=== PATIENT | male | born 1945 | race Caucasian/White ===

== ENCOUNTER 2016-09-11 11:10 | Inpatient (IN) | payer MEDICARE ==
--- NOTE | 2016-09-11 11:20 | HP ---
HISTORY OF PRESENT ILLNESS: This 71 year-old white male is admitted to the hospital from Dr. Laughlin' office as a direct admission. He was seen in the clinic and was found to have fairly significant abdominal pain worsening for the last 6 days. Pain is primarily localized into the left lower quadrant. Appetite has been fairly good. He has had some similar pains like this many years before with diverticulitis. He has been coughing with some greenish sputum. He admits to having shortness of breath for the last 20 years and stopped smoking about 30 years after an approximate 50 to 60 pack year history of smoking up to 3 or 4 packs per day. The abdominal pain is a prominent part of his current admission symptoms and he is admitted to the hospital for further evaluation, supportive care as well as gastrointestinal rest and specific followup. PAST SURGICAL HISTORY: 1. Hernia repair by Dr. Chase in 2002. 2. Coronary stents in 2 vessels in 2006. CURRENT MEDICATIONS: Please refer to nurses' notes for a list of verified medications taken by the patient at home. ALLERGIES: NONE. FAMILY HISTORY: Positive for coronary artery disease, cancer and diabetes. SOCIAL HISTORY: He has worked in [employer] and [employer]. He stopped smoking 30 years ago but has had increasing shortness of breath for the last 20 years. Before that, he had a 50 to 60 pack year history of smoking up to 3 or 4 packs per day until when he stopped. REVIEW OF SYSTEMS: Weight is fairly stable. No fever or chills. HEENT: Uses hearing aids occasionally. NECK: Supple. LUNGS: Occasional coughing with some greenish sputum even with some hemoptysis noted earlier today. Shortness of breath upon exertion. CARDIOVASCULAR: No significant chest pains and no significant rhythm changes evident. ABDOMEN: No nausea or vomiting, but he does have significant abdominal discomfort, especially in the left lower quadrant. No diarrhea or emesis. GENITOURINARY: No dysuria. EXTREMITIES: No significant edema. NEUROLOGIC: No focal weakness. No headaches. PHYSICAL EXAMINATION: VITAL SIGNS: Temperature 98.6, blood pressure 116/84, pulse 94, respirations 18 , pulse oximetry 95% on room air. Weight 90.9 kilos. GENERAL: The patient is awake, alert and oriented. The is also present and assists with the history. The patient is able to communicate quite nicely, is moving all extremities but complaining of abdominal pain. HEENT: Unremarkable. NECK: Supple. No carotid bruits. CHEST: Have some slight rhonchi, especially in the left lower lung. No significant rales present. CARDIOVASCULAR: Heart tones regular without any significant murmurs. ABDOMEN: Quite tender especially in the left lower quadrant. There is an element of rebound tenderness when palpating and releasing rapidly on the right side with referral of the pain towards the left lower quadrant. No organomegaly or masses otherwise noted. EXTREMITIES: Fairly well formed. Fairly good muscle tone. NEUROLOGIC: No focal neurological weaknesses noted. The patient is awake, alert and oriented, and communicative. LABORATORY: White count initially 14,700 with 11,100 in the hospital after admission. Hemoglobin 15.3. Chemistries reveal potassium 4, BUN 10, creatinine 0.94, glucose 126, calcium 8.8. Liver enzymes normal. Albumin 3.4. Urine pending. Blood cultures also pending. X-rays pending. ASSESSMENT: 1. Acute abdominal pain especially in the left lower quadrant with the patient having a diagnosis of diverticulosis noted on endoscopy years before with current symptoms showing evidence of possible mild peritonitis and inflammation with slight rebound tenderness noted. 2. Chronic obstructive pulmonary disease in a former smoker with apparent history of restrictive lung disease noted. 3. Presumptive evidence of a left lower lobe infiltrate noted on x-ray by Dr. Laughlin in the clinic earlier today. 4. Mild dehydration with IV supplementation initiated. 5. History of gastroesophageal reflux disease. 6. History of diverticulosis with possible underlying diverticulitis contributing to the patient's symptoms. PLAN: Continue with some gastrointestinal rest and IV hydration, analgesics as needed. Will continue with Flagyl and Levaquin, and await CT scan of the abdomen and pelvis with contrast after normal kidney function noted. Please refer to laboratory studies. #[id number] [facility]
[2016-09-11] MEDS ORDERED: HYDROcodone 5MG/APAP 325MG 1 EA TAB PO PRN (13:01)
[2016-09-11] MEDS ORDERED: ACETAMINOPHEN 500 MG TAB PO PRN (13:01)
[2016-09-11] MEDS ORDERED: ALUM & MAG HYDROX-SIMETHICONE 30 ML UD PO PRN (13:01)
[2016-09-11] MEDS ORDERED: MAGNESIUM HYDROXIDE 30 ML UD PO PRN (13:01)
[2016-09-11] MEDS ORDERED: LEVALBUTEROL NEBS 1.25 MG/3 ML VIAL INH PRN (13:01)
[2016-09-11] MEDS ORDERED: BISACODYL SUPPOSITORY 10 MG PR PRN (13:09)
[2016-09-11] MEDS ORDERED: metroNIDAZOLE IV PREMIX 500MG 500 MG in PREMIX BAG 1 BAG IVPB SCH (13:30)
[2016-09-11] MEDS: ALBUTEROL SULFATE 2.5 MG/3 ML VIAL NEB SCH ×3 (13:40→20:55)
[2016-09-11] MEDS ORDERED: ONDANSETRON INJ 4 MG/2 ML VIAL IV PRN (14:02)
[2016-09-11] MEDS ORDERED: PANTOPRAZOLE SODIUM IV 40 MG VIAL IV SCH (14:30)
[2016-09-11] MEDS ORDERED: levoFLOXacin 500MG IV 500 MG in PREMIX BAG 1 BAG IVPB SCH (14:30)
--- NOTE | 2016-09-11 15:12 | CT ---
EXAM DESCRIPTION: Abdomen/Pelvis w/Contrast CLINICAL HISTORY: abd pain, hx of divertics COMPARISON: March 30, 2011 TECHNIQUE: CT of the abdomen and Pelvis was performed with IV contrast. FINDINGS: There is colonic diverticulosis with wall thickening, inflammation and a tiny amount of fluid adjacent to a short segment of sigmoid colon consistent with diverticulitis. No abscess or pneumoperitoneum. The appendix is normal. No dilated small bowel loops. There is a 3.1 cm fusiform infrarenal abdominal aortic aneurysm, new from March,. There is a small hiatal hernia. No calcified gallstone. Emphysema and fibrosis are noted in the lung bases. There is degenerative disc disease at L5-S1. IMPRESSION: Sigmoid diverticulitis without abscess, perforation or other acute complication. 3.1 cm fusiform infrarenal abdominal aortic aneurysm, new from March,. AAA Size: Follow-up Recommendation : 2.6-2.9 cm Every 5 years 3.0-3.4 cm Every 3 years 3.5-3.9 cm Every 1 year 4.0-4.4 cm Every 1 year, vascular consultation recommended 4.5-5.4 cm Every 6 months, vascular consultation recommended >5.5 cm Vascular surgery consultation recommended 1. J Vasc Surg. 2009 Oct;50(4 Suppl):S2-49 2. For aortas with maximum diameter of 2.6-2.9 cm meeting the criteria for AAA (>50% of proximal normal segment) Emphysema and fibrosis. Electronically signed by: Sammy Jones MD 09/11/2016 3:11 PM PET CAREGIVER
[2016-09-11] MEDS: IV SET AND CAP CHANGE INJ INJ SCH (15:35)
[2016-09-11] MEDS ORDERED: metroNIDAZOLE IV PREMIX 500MG 100 ML IVPB ONE ×2 (15:37→23:42)
[2016-09-11] MEDS: metroNIDAZOLE IV PREMIX 500MG 500 MG in PREMIX BAG 1 BAG IVPB SCH ×2 (15:42→23:49)
[2016-09-11] MEDS ORDERED: levoFLOXacin 500MG IV 100 ML IVPB ONE (16:18)
[2016-09-11] MEDS: SODIUM CHLORIDE 0.9% 1000ML 1,000 ML IVS PRN (17:12)
[2016-09-11] MEDS: MORPHINE SULFATE INJ 10 MG/ML VIAL IV PRN ×2 (17:48→18:28)
[2016-09-11] MEDS: SODIUM CHLORIDE 0.9% 10 ML VIAL IV PRN (17:49)
[2016-09-11] MEDS: levoFLOXacin 500MG IV 500 MG in PREMIX BAG 1 BAG IVPB SCH (17:54)
[2016-09-11] MEDS ORDERED: ACETAMINOPHEN 325 MG TAB PO PRN (20:09)
[2016-09-11] MEDS ORDERED: HYDROmorphone HCL INJ 2 MG/ML VIAL IV PRN (20:10)
[2016-09-11] MEDS ORDERED: HYDROmorphone HCL INJ 2 MG/ML VIAL IV ONE (20:11)
[2016-09-12] MEDS: SODIUM CHLORIDE 0.9% 1000ML 1,000 ML IVS PRN (06:01)
[2016-09-12] MEDS: PANTOPRAZOLE SODIUM IV 40 MG VIAL IV SCH (06:04)
[2016-09-12] MEDS ORDERED: OMEPRAZOLE CAP 20 MG CAP PO SCH (06:30)
[2016-09-12] MEDS ORDERED: metroNIDAZOLE IV PREMIX 500MG 100 ML IVPB ONE ×3 (07:30→20:57)
[2016-09-12] MEDS: metroNIDAZOLE IV PREMIX 500MG 500 MG in PREMIX BAG 1 BAG IVPB SCH ×3 (07:39→23:26)
[2016-09-12] MEDS: ALBUTEROL SULFATE 2.5 MG/3 ML VIAL NEB SCH ×4 (08:00→19:15)
[2016-09-12] MEDS ORDERED: KCL 20MEQ/D5 1/2NS 1,000 ML IVS PRN (10:51)
[2016-09-12] MEDS: KCL 20MEQ/D5 1/2NS 1,000 ML IVS PRN (11:27)
[2016-09-12] MEDS: ENOXAPARIN SODIUM 40 MG/0.4 ML SYG SUBCU SCH (17:39)
[2016-09-12] MEDS ORDERED: levoFLOXacin 500MG IV 100 ML IVPB ONE (18:19)
[2016-09-12] MEDS: levoFLOXacin 500MG IV 500 MG in PREMIX BAG 1 BAG IVPB SCH (18:37)
[2016-09-12] MEDS: ZOLPIDEM TARTRATE 5 MG TAB PO PRN (21:57)
[2016-09-13] MEDS: KCL 20MEQ/D5 1/2NS 1,000 ML IVS PRN (01:49)
[2016-09-13] MEDS ORDERED: metroNIDAZOLE IV PREMIX 500MG 100 ML IVPB ONE ×3 (05:22→19:36)
[2016-09-13] MEDS: PANTOPRAZOLE SODIUM IV 40 MG VIAL IV SCH (06:17)
[2016-09-13] MEDS: metroNIDAZOLE IV PREMIX 500MG 500 MG in PREMIX BAG 1 BAG IVPB SCH ×3 (07:53→23:26)
[2016-09-13] MEDS: ALBUTEROL SULFATE 2.5 MG/3 ML VIAL NEB SCH ×4 (08:05→20:27)
--- NOTE | 2016-09-13 08:59 | PN ---
SUPERVISING PHYSICIAN: Bita Carroll MD DATE: 09/12/16 SUBJECTIVE: The patient is lying in bed. He continues with complaints of some mild diffuse abdominal pain and some mild left lower quadrant pain, but he does state it is much better than yesterday. He occasionally has some shortness of breath with exertion and when he was ambulating in the hallways, but other than that at rest, he has no shortness of breath. He denies any chest pain, nausea, vomiting or diarrhea. OBJECTIVE: VITAL SIGNS: Afebrile. Heart rate 67. Blood pressure 139/77. Respiratory rate gets as high as 24, but is now 18. Saturations did drop to the mid 80s with ambulation, but is now 91% on 2 liters nasal cannula. GENERAL: This is a 71-year-old male patient who is lying in his hospital bed. He is in no acute distress. LUNGS: Essentially clear to auscultation, somewhat diminished at the bases. CARDIAC: Regular rate and rhythm. ABDOMEN: Diffusely tender throughout, somewhat more tender to the left lower quadrant. Otherwise, bowel sounds are positive. Nondisplaced and soft. EXTREMITIES: No cyanosis, clubbing or edema. NEUROLOGIC: Awake, alert and oriented times three. LABORATORY: White count 8.5, hemoglobin 14.1, hematocrit 42.1, platelet count 174, neutrophils 70. Sodium 139, potassium 3.8, chloride 104, BUN 10, creatinine 0.88. C-reactive protein 7.7. Preliminary blood cultures show no growth after 24 hours. All other labs and films have been reviewed via the EMR. ASSESSMENT: 1. Left lower lobe pneumonia. 2. Diverticulitis per CT scan, presently on Flagyl and Levaquin. 3. Acute abdominal pain, especially in the left lower quadrant and with a significant history of diverticulosis. 4. Chronic obstructive pulmonary disease. 5. Mild dehydration, resolved. 6. Gastroesophageal reflux disease. 7. History of diverticulosis. 8. Abdominal aortic aneurysm as evidenced by CT scan that is 3.1 cm that will need to be followed as an outpatient. PLAN: We will continue present supportive care included GI rest. Has pain has been controlled with Dilaudid. If he continues to improve during the day, I will advance him to a clear liquid this evening. I changed his IV fluids to D5 half with 20 of K at 90 and we will discontinue that tomorrow if he is taking p.o. well. I will also monitor his saturations as his ambulatory study showed he dropped as low as 84% on room air. It would also be advisable for him to do a sleep study as an outpatient as his states he tires easily during the day and due to the hypoxia shown on the ambulatory study. As for now, we will encourage good pulmonary toilet. Hopefully he can be discharged in the next couple of days. Dr. Carroll is the collaborating physician and available for consultation. #[id number] ÁNGEL
[2016-09-13] MEDS: SODIUM CHLORIDE 0.9% (FLUSH) 10 ML SYG IV PRN ×2 (09:30→23:26)
--- NOTE | 2016-09-13 11:58 | PN ---
SUPERVISING PHYSICIAN: Bita Carroll MD DATE: 09/13/16 SUBJECTIVE: The patient is sitting in bed. He is using his incentive spirometry. He denies any chest pain, shortness of breath, abdominal pain, nausea, vomiting, diarrhea, or constipation. He has walked in the hallways several times, but had not walked with respiratory as yet. We discussed the sleep study after he is discharged and he has agreed to that although he says he will not wear home oxygen. OBJECTIVE: VITAL SIGNS: Afebrile. Heart rate 67. Blood pressure 147/84. Respiratory rate 18. O2 saturation 93% on room air. LUNGS: Essentially clear to auscultation bilaterally. He is slightly diminished at the bases. CARDIAC: Regular rate and rhythm. ABDOMEN: Soft, nontender, nondistended. Bowel sounds are positive. EXTREMITIES: No cyanosis, clubbing or edema. NEUROLOGIC: Awake, alert and oriented times three. LABORATORY: WBC 7.9, hemoglobin 14.4, hematocrit 42.5. Sodium 140, potassium 4 , chloride 108, carbon dioxide 24, BUN 8, creatinine 1.06. Preliminary blood cultures are negative after 24 hours. Sputum culture shows normal ramya. All other labs and films have been reviewed via the EMR. ASSESSMENT: 1. Left lower lobe pneumonia. 2. Diverticulitis per CT scan, presently on Flagyl and Levaquin. 3. Acute abdominal pain, especially in the left lower quadrant and with a significant history of diverticulosis, improving. 4. Chronic obstructive pulmonary disease. 5. Mild dehydration, resolved. 6. Gastroesophageal reflux disease. 7. History of diverticulosis. 8. Abdominal aortic aneurysm as evidenced by CT scan that is 3.1 cm that will need to be followed as an outpatient. PLAN: We will continue supportive care including encouraging him to have good pulmonary toilet. I am awaiting his ambulatory study today. I have advanced his diet to full liquid and I have discontinued his IV fluids. He is taking p.o. well at this time. We will continue on his Flagyl and Levaquin. He will need a sleep study on discharge. I have encouraged him to use his breathing treatments and his incentive spirometry at home. Otherwise, we will continue to monitor the patient closely and followup as needed. Hopefully we will discharge maybe tomorrow. He will need a followup scope at some point. Dr. Carroll is the collaborating physician and available for consultation. #[id number] [facility]ITAL[facility]
[2016-09-13] MEDS ORDERED: levoFLOXacin 500MG IV 100 ML IVPB ONE (15:25)
[2016-09-13] MEDS: ENOXAPARIN SODIUM 40 MG/0.4 ML SYG SUBCU SCH (16:00)
[2016-09-13] MEDS: levoFLOXacin 500MG IV 500 MG in PREMIX BAG 1 BAG IVPB SCH (17:07)
[2016-09-13] MEDS: SODIUM CHLORIDE 0.9% (FLUSH) 10 ML SYG IV SCH (20:34)
[2016-09-13] MEDS: ZOLPIDEM TARTRATE 5 MG TAB PO PRN (21:59)
[2016-09-14] MEDS: SODIUM CHLORIDE 0.9% (FLUSH) 10 ML SYG IV PRN (06:17)
[2016-09-14] MEDS: PANTOPRAZOLE SODIUM IV 40 MG VIAL IV SCH (06:17)
[2016-09-14] MEDS: SODIUM CHLORIDE 0.9% 10 ML VIAL IV PRN (06:18)
--- NOTE | 2016-09-14 06:24 | RAD ---
Clinical History : pna , MAIN Exam : PA and lateral views of the chest 09/14/2016 5:00 AM CLOCK MECHANIC Comparisons : PA and lateral views of the chest September 12, 2016 Findings : There is increasing lingular and patchy right basilar airspace disease. There are stable emphysematous changes throughout the lungs bilaterally. The heart is stable in size. The mediastinal contours are normal in appearance. There are vascular calcifications along the aortic arch. The thoracic spine is age appropriate. The shoulders are unremarkable. Limited evaluation of the upper abdomen demonstrates no gross abnormalities. Impression: 1. Increasing lingular patchy right basilar airspace disease. 2. Stable emphysema. Electronically signed by: Drea Herr MD 09/14/2016 6:23 AM CLOCK MECHANIC
[2016-09-14] MEDS ORDERED: metroNIDAZOLE IV PREMIX 500MG 100 ML IVPB ONE (07:12)
[2016-09-14] MEDS: metroNIDAZOLE IV PREMIX 500MG 500 MG in PREMIX BAG 1 BAG IVPB SCH (07:33)
[2016-09-14] MEDS: ALBUTEROL SULFATE 2.5 MG/3 ML VIAL NEB SCH ×2 (08:10→12:45)
[2016-09-14] MEDS ORDERED: ASPIRIN (CHEWABLE) 81 MG TAB PO SCH (09:00)
[2016-09-14] MEDS: SODIUM CHLORIDE 0.9% (FLUSH) 10 ML SYG IV SCH (09:13)
[2016-09-14 10:34] VITALS: BP 139/77; TEMP 97.3
[2016-09-14] MEDS: IV SET AND CAP CHANGE INJ INJ SCH (12:53)
--- NOTE | 2016-09-14 13:38 | RAD ---
Study: Frontal and Lateral Views of the Chest. Indication: COPD, LLL infiltrate Comparison: March 19, 2014. Impression: Cardiomegaly. Emphysema. Progressive bibasilar consolidative changes superimposed on likely chronic scarring. Short-term follow-up recommended. No pleural effusion or pneumothorax. Osteopenia. If this is a new finding, DEXA scan recommended as well as evaluation for possible osteoporosis treatment. Electronically signed by: Kenny Henderson MD 09/12/2016 7:24 AM INFORMATION TECHNOLOGY ADMINISTRATOR
[2016-09-14 14:23] VITALS: O2SAT 99
[2016-09-14] MEDS ORDERED: ATORVASTATIN 10 MG TAB PO SCH (21:00)
--- NOTE | 2016-09-18 09:07 | DS ---
SUPERVISING PHYSICIAN: Pratik Laughlin MD DISCHARGE DIAGNOSIS: 1. Left lower lobe pneumonia. 2. Diverticulitis per CT scan, presently on Flagyl and Levaquin. 3. Acute abdominal pain, especially in the left lower quadrant and with a significant history of diverticulosis, improved. 4. Chronic obstructive pulmonary disease. 5. Mild dehydration, resolved. 6. Gastroesophageal reflux disease. 7. History of diverticulosis. 8. Abdominal aortic aneurysm as evidenced by CT scan that is 3.1 cm that will need to be followed as an outpatient. HISTORY OF PRESENT ILLNESS: This is a 71-year-old male patient who presented to the hospital directly from Dr. Laughlin' office. He was seen in the clinic on the date of admission and was found to have fairly significant abdominal pain that had been worsening for the previous six days. The pain was primarily located in the left lower quadrant. His appetite was good. He has had similar pains like this in the past and they were diagnosed as diverticulitis. He also had been coughing and had some greenish sputum as well as shortness of breath. He stopped smoking about 30 years ago after a significant history of tobacco use. His white count initially was 14,[address] scan showed sigmoid diverticulitis without abscess, perforation or other acute complication as well as a 3.1 cm fusiform infrarenal abdominal aortic aneurysm that was new since 2010. His chest x-ray showed emphysema with a progressive bibasilar consolidative changes superimposed on likely chronic scarring. The patient was started on Flagyl and Levaquin. He was made NPO. The first day, his belly remained very tender, but on the second day, the tenderness was much more diffuse and mild in the left lower quadrant. He did have several ambulatory studies where he desaturated down to the low 80s when he was on room air and required oxygen. He slowly progressed. His white count normalized. His preliminary blood culture showed no growth. His vital signs remained stable as his oxygen saturation improved. The day prior to discharge, his diet was advanced. He tolerated his diet well. On the date of discharge, his ambulatory study showed that his oxygen saturations remained greater than 92%. He had no further complaints of abdominal pain and was tolerating his bland diet without problems. He will be discharged today. DISCHARGE PLAN: The patient will be discharged home in stable condition. He is to have a bland diet. He is to increase his activity as tolerated. He has a followup with Dr. Laughlin on 09/19/16, at 8:45 AM. The patient states it had been recommended for him to have a sleep study as his states he does not sleep well at home. He will be discharged on 7 additional days of Levaquin and Flagyl. He is to return to the hospital or call Dr. Laughlin' office for any further problems or complications. DISCHARGE MEDICATIONS: 1. Pantoprazole. 2. Aspirin. 3. Lipitor. 4. Levaquin. 5. Metronidazole. Dr. Laughlin is the collaborating physician and available for consultation. #[id number] [facility]
== END 2016-09-14 14:15 | disposition home or self-care (01) | DRG 391 ==
LOC: MS 11:10
PROVIDERS: ADMIT Family Medicine; ATTEND Nurse Practitioner Acute Care
PROC: BW21YZZ Computerized Tomography (CT Scan) of Abdomen and Pelvis using Other Contrast (ICD-10-PCS; principal; 2016-09-11)
DX: K57.32 Diverticulitis of large intestine without perforation or abscess without bleeding (principal); J18.9 Pneumonia, unspecified organism; J44.0 Chronic obstructive pulmonary disease with (acute) lower respiratory infection; R04.2 Hemoptysis; E86.0 Dehydration; K21.9 Gastro-esophageal reflux disease without esophagitis; I71.4 Abdominal aortic aneurysm, without rupture; R09.02 Hypoxemia; Z95.5 Presence of coronary angioplasty implant and graft; Z87.891 Personal history of nicotine dependence

== ENCOUNTER 2017-01-23 11:24 | Observation (INO) | payer MEDICARE ==
--- NOTE | 2017-01-23 11:26 | HP ---
SUPERVISING PHYSICIAN: Pratik Laughlin M.D. CHIEF COMPLAINT: Chest pain and left facial numbness. HISTORY OF PRESENT ILLNESS: Mr. Toney is a 71 year-old male patient of Dr. Laughlin. He has a significant history of pulmonary fibrosis and elevated cholesterol. Two weeks previously, he developed left sided facial numbness but no motor deficits. He was seen in the clinic today by Dr. 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 He rests and after 30 minutes the pain subsides. He does note that he has had some nausea associated with the pain but denies any significant shortness of breath or syncopal episodes. In the clinic today, he had an EKG that showed normal sinus with no ST or T wave changes. Given the fact that he had had some occurrence of chest pain within the last 24 to 48 hours as well as the ongoing left sided facial numbness, Dr. Laughlin requested the patient be admitted to the hospital for further cardiovascular evaluation as well as further evaluation of the ongoing facial numbness. The patient was directly admitted in stable condition to the Medical/Surgical floor. PAST MEDICAL HISTORY: 1. Chronic obstructive pulmonary disease. 2. Gastroesophageal reflux disease with a hiatal hernia. 3. Hyperlipidemia. 4. Coronary artery disease with previous stent placement in 2007. 5. Abdominal aortic aneurysm measuring 3.1 cm in 2017. 6. Pulmonary nodule, stable on serial CTs followed by Dr. Laughlin. 7. Diverticulosis. 8. Esophageal strictures. 9. Peripheral sensory neuropathies. PAST SURGICAL HISTORY: 1. PTCA in 06/2008 with stents. 2. Colonoscopy in 2000. 3. Esophagogastroduodenoscopy in 2000 with stricture dilated in 2011 with esophageal web dilated. HOME MEDICATIONS: 1. Pantoprazole 40 mg daily at bedtime. 2. Aspirin 91 mg daily. 3. Lipitor 10 mg daily. ALLERGIES: NO KNOWN DRUG ALLERGIES. FAMILY HISTORY: Positive for coronary artery disease, cancers and diabetes. 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 He does note that he smoked but quit 30 years previous and has had ongoing worsening shortness of breath for the last 20 years. He did have a history of 50 to 60 pack year history when he smoked of 3 or 4 packs a day. He denies any drinking alcohol or illicit drug use. REVIEW OF SYSTEMS: CONSTITUTIONAL: Denies any weakness, fever or chills, or unintentional weight loss. HEENT: Notes that he uses hearing aids on occasion. RESPIRATORY: Has an occasional cough with a history of pulmonary fibrosis with ongoing shortness of breath on exertion. CARDIOVASCULAR: As noted in the History of Present Illness, chest pains at work. ABDOMEN: Noted he had some nausea with the chest pains, otherwise he has had no significant abdominal discomfort, any changes in bowel habits. No diarrhea or constipation. GENITOURINARY: Denies any dysuria, hematuria or other urinary symptoms. EXTREMITIES: Denies any history of pedal edema. NEUROLOGIC: As per History of Present Illness, left sided facial numbness for 2 weeks. PHYSICAL EXAMINATION: VITAL SIGNS: On admission to the Medical/Surgical floor, temperature was 96.4, pulse 53, blood pressure 116/79, satting 96% on room air. Admission weight was 90.1 kg. GENERAL: The patient appears to be in no acute distress. He is alert, resting. Appears to be well-nourished and well-hydrated. HEENT: Wears bilateral hearing aids. Oropharynx is pink and moist without any lesions. NECK: There is no jugular venous distention. Neck is supple. Full range of motion. Non-tender. CHEST: Lungs are clear to auscultation bilaterally without any rhonchi, wheezing or rales. CARDIOVASCULAR: Regular rate and rhythm without appreciable murmurs, gallops, or rubs. ABDOMEN: Soft, non-tender. Positive bowel sounds. EXTREMITIES: No clubbing, cyanosis or edema. NEUROLOGIC: Cranial nerves II-XII were grossly intact except for facial nerve likely cranial nerve V with reported paresthesia and numbness to the left side of the face approximately paranasal labial fold extending just below the left side of the chin apparently without any mention of crossing the midline. His facial features were symmetrical. There was no obvious facial drooping. Extraocular movements are within normal limits. No nystagmus was noted. Neuromotor deficits, no notable weakness on assessment. He was alert and oriented times three. LABORATORY: CBC showed to be within normal limits with white count of 8.5. Differential was within normal limits. Chemistries showed normal electrolytes with potassium 4.2, BUN 19, creatinine 1.26, magnesium 2.3, calcium 9.1. Liver functions were within normal limits. Initial troponin was 0.02 as well as his CK was within normal limits at 123. Urinalysis was pending. RADIOLOGY: Carotid artery study and brain MRI study were pending at time of admission. Chest x-ray pending. EKG showed normal sinus rhythm in the clinic with repeat on admission pending. ASSESSMENT: 1. Chest pain with anginal type presentation with pain on exertion and resolving spontaneously without intervention after rest with the patient having a significant cardiac history with previous stents in the previous 10 years. 2. Left sided facial numbness involving cranial nerve V with questionable involving central origin versus peripheral with MRI and carotid Doppler studies pending with symptoms having occurred 2 weeks prior to admission with no other neurologic symptoms noted. 3. Chronic obstructive pulmonary disease with worsening pulmonary fibrosis. 4. Gastroesophageal reflux disease with hiatal hernia with a history of esophageal strictures with possible contributing to the chest pains as mentioned in number 1. 5. History of abdominal aortic aneurysm, last noted in 2017 measuring 3.[address] Laughlin. 6. Pulmonary nodules showing to be stable on serial CT exams followed by Dr. Laughlin and log feeder, Dr. Williamson. PLAN: The patient will be admitted to the hospital for continuation of workup with concerns for previous stroke as noted with the facial numbness, therefore will plan to get carotid studies as well as an MRI of the brain and do neurological assessments as per protocol. In regards to chest pain, will start him on Nitro patch at 0.2 mcg per hour. He will be on telemetry with cardiac enzymes every 6 hours times 2 as well as EKGs. Will start him on DVT prophylaxis as per protocol. Anticipate length of stay to be 2 to 3 days pending final clinical evaluation of the studies, including MRI of the brain and carotid studies. The patient is already on aspirin and Lipitor at this point. Will continue his home medications as previously prescribed once they have been updated and verified. Will plan to reevaluate in the morning with further radiographic studies to include again the MRI of the brain and carotids , and repeat cardiac enzymes. Until discharge, will continue to monitor and treat appropriately. #[id number] [facility]
[2017-01-23] MEDS ORDERED: ACETAMINOPHEN 325 MG TAB PO PRN (11:36)
[2017-01-23] MEDS ORDERED: ASPIRIN (CHEWABLE) 81 MG TAB PO ONE (11:36)
[2017-01-23] MEDS ORDERED: NITROGLYCERIN 0.4 MG 25 EA TAB SL PRN (11:36)
[2017-01-23] MEDS ORDERED: SODIUM CHLORIDE 0.9% (FLUSH) 10 ML SYG IV PRN (11:36)
[2017-01-23] MEDS ORDERED: IV SET AND CAP CHANGE INJ INJ SCH (12:00)
--- NOTE | 2017-01-23 15:29 | US ---
EXAM DESCRIPTION: Carotid Duplex CLINICAL HISTORY: 2 weeks left sided facial numbness COMPARISON: None Available. TECHNIQUE: Multiple grayscale, color, and spectral Doppler images of the bilateral carotid systems. FINDINGS: Moderate atherosclerotic plaque in both carotid bulbs. Grayscale imaging shows up to 77% area stenosis in the left carotid bulb. All duplex waveforms and velocities are within normal limits on both sides. ICA/CCA ratios are normal. Both vertebral arteries demonstrate antegrade flow. The external carotid arteries are patent. IMPRESSION: 1. Mild atherosclerosis with less than 50% stenosis in both internal carotid arteries by ratio and velocity criteria. 2. Grayscale imaging suggest up to 77% area stenosis in the left carotid bulb, but there are no elevated velocities or ratios. Electronically signed by: Abhay Chow MD 01/23/2017 3:27 PM CDT
--- NOTE | 2017-01-23 16:14 | MRI ---
EXAM DESCRIPTION: Brain w/o Contrast CLINICAL HISTORY: 2 weeks left sided facial numbness COMPARISON: None available TECHNIQUE: Non contrast MRI of the brain is performed according to our usual protocol including multiplanar multi sequence technique. FINDINGS: No hemorrhage, mass effect, diffusion restriction, or acute infarction is present. There is normal configuration of the ventricles and sulci. Mild generalized volume loss is present. Mild patchy T2/FLAIR hyperintensities in the supratentorial white matter. Probable chronic lacunar infarct in the left frontal periventricular white matter. No abnormal extra-axial fluid collections are present. The distal left internal carotid and left middle cerebral artery flow voids are less well-defined compared to the right. The calvarium is intact. Visualized paranasal sinuses and mastoid air cells are clear. IMPRESSION: 1. No hemorrhage, mass effect, or acute infarction. 2. Less well-defined flow voids of the distal left internal carotid artery and left middle cerebral artery. This may be secondary to slow flow versus altered direction of flow from the occluded left internal carotid artery on the same day carotid ultrasound. Recommend CTA of the head and neck to further characterize. 3. Mild chronic microangiopathy with chronic appearing lacunar infarct in the left anterior frontal white matter. Findings and follow-up recommendations discussed with Dr. Guy Lopez on 01/23/2017 at 1610 hours. Electronically signed by: Abhay Chow MD 01/23/2017 4:13 PM CDT
[2017-01-23] MEDS: NITROGLYCERIN 0.2 MG/HR PATCH TD SCH (17:48)
--- NOTE | 2017-01-23 19:49 | PCM.CORE ---
Physician DVT/VTE - Nurse DVT Assessment & Total Each Risk Factor Represents 2 Points: Age 60-74 Each Risk Factor is 1 Point: Serious Lung disease (pnemonia <1month, COPD, emphysema,etc) DVT Assessment Score: 3 - 2 Moderate Risk Treatments: Early Ambulation *, Sequential Compression Device Pharmacological: Enoxaparin 40mg SQ Daily - 3-4 High Risk Treatments: Early Ambulation *
[2017-01-23] MEDS ORDERED: ENOXAPARIN SODIUM 40 MG/0.4 ML SYG SUBCU SCH (20:00)
[2017-01-23] MEDS ORDERED: SODIUM CHLORIDE 0.9% (FLUSH) 10 ML SYG IV SCH (21:00)
[2017-01-23] MEDS ORDERED: PANTOPRAZOLE SODIUM TAB 40 MG PO SCH (21:00)
[2017-01-23] MEDS ORDERED: ASPIRIN (CHEWABLE) 81 MG TAB ONE (21:18)
[2017-01-23] MEDS ORDERED: TEMAZEPAM 15 MG CAP ONE (21:19)
[2017-01-23] MEDS ORDERED: PANTOPRAZOLE SODIUM TAB 40 MG PO ONE (21:19)
[2017-01-23] MEDS ORDERED: TEMAZEPAM 15 MG CAP PO PRN (21:23)
[2017-01-24] MEDS ORDERED: ASPIRIN TABLET 325 MG TAB ONE (07:46)
[2017-01-24] MEDS ORDERED: ASPIRIN TABLET 325 MG TAB PO SCH (09:00)
--- NOTE | 2017-01-24 09:14 | CT ---
EXAM DESCRIPTION: CTA Neck (accession [id number]), CTA Head (accession [id number]) CLINICAL HISTORY: F/u on carotid and MRI study - occluded Left ICA COMPARISON: None. TECHNIQUE: Postcontrast CTA images of the head and neck are obtained with coronal and sagittal reconstructed images of the arterial vasculature. Three-D MIP and 3-D reconstructed images of the neck and intracranial arterial vasculature are performed. Opacification of the arterial vasculature is suboptimal but adequate. This exam was performed according to our departmental dose-optimization program, which includes automated exposure control, adjustment of the mA and/or kV according to patient size and/or use of iterative reconstruction technique . FINDINGS: CTA neck: Moderate calcified plaque of the partly visualized thoracic aortic arch is seen with normal origin of the great vessels from the aortic arch. There is moderate focal less than 1 cm calcified and noncalcified plaque at the origin of the left subclavian artery resulting in at least 50% stenosis or greater by NASCET criteria. There is mostly hypoechoic noncalcified plaque in the mid left subclavian artery measuring 13 mm length beginning approximately 3.7 cm beyond the origin of the vessel resulting in greater than 75% stenosis of the subclavian artery by NASCET criteria. This is just proximal to the origin of the left vertebral artery which is difficult to identify and not well opacified. There is tortuosity of the subclavian artery at this level with streak artifact limiting evaluation. There is opacification of the more distal subclavian artery noted. The right subclavian artery is not well visualized because of dense opacification of the right subclavian vein. There is moderate intimal thickening of the brachiocephalic artery to common carotid artery. Tortuosity of the right common carotid artery is noted with areas of mild to moderate noncalcified plaque in the distal common carotid artery to carotid bulb. Scattered calcified plaque at the carotid bulb to proximal ICA seen in there appears to be small probable focus of ulcerated plaque on image 60 of series 3. There is 25% stenosis over 1 cm length of the proximal right ICA by NASCET criteria. The remainder of the right ICA is tortuous without flow-limiting stenosis. There is mild intimal thickening of the left common carotid artery with mild smooth noncalcified plaque in the distal left common carotid artery resulting in less than 25% stenosis by NASCET criteria. There is moderate calcified and noncalcified plaque at the origin of the left internal carotid artery narrowing of the opacified lumen to approximately 1.3 mm over a length of 6 mm. This is consistent with at least 75% stenosis. The remainder of the left internal carotid artery is opacified without other areas of significant plaque or flow limiting stenosis. No stenosis of the external carotid arteries is seen. There is poor opacification of the left vertebral artery. The right vertebral artery is dominant. The origin of the right vertebral artery is not seen because of streak artifact from contrast in the subclavian vein. The neck soft tissues show no acute findings. Lung apices show severe right greater than left centrilobular emphysematous changes. There is increased lordosis of the cervical spine with moderate to severe disc degenerative changes and facet arthropathy from C3 C7. CTA HEAD: Structures are not displaced. Sulci are age appropriate. There is a low-attenuation in the periventricular white matter and white matter of the centrum semiovale are seen. There is no evidence of mass, mass effect, hydrocephalus, or acute intracranial hemorrhage. No abnormal extra-axial fluid collections are seen. There are no abnormal areas of enhancement. Mild calcified plaque of the intracranial internal carotid arteries are seen right greater than left. The intracranial internal carotid artery on the left is smaller than the right, but overall patent. There is an absent left A1 segment with patent anterior communicating artery. There are prominent bilateral posterior communicating arteries with very hypoplastic right and mildly hypoplastic left P1 segments. The basilar artery is small in size. There is moderate to severe focal narrowing of the proximal basilar artery just beyond the vertebral arteries over 1 cm length. Branching of the intracranial arterial vasculature is otherwise unremarkable. No aneurysm or vascular malformation is seen. IMPRESSION: There is focal mostly noncalcified soft plaque at the origin of the left internal carotid artery resulting in at least 75% or greater stenosis by NASCET criteria. Moderate mostly noncalcified soft plaque in the right carotid bulb to internal carotid artery seen without flow-limiting stenosis. There is evidence of ulcerated plaque in this vessel. There is greater than 75% stenosis of the left subclavian artery just proximal to the origin of the vertebral artery with probable moderate to severe stenosis at the origin of the left subclavian artery. There is poor opacification of the left vertebral artery which could be related to the subclavian artery stenosis. Mild atherosclerotic disease of the intracranial internal carotid arteries. Moderate to severe focal stenosis of the proximal basilar artery is seen. Prominent bilateral posterior communicating arteries are seen with hypoplastic P1 segments the posterior cerebral arteries. Electronically signed by: Pepe Andrew MD 01/24/2017 9:13 AM CDT
[2017-01-24] MEDS: NITROGLYCERIN 0.2 MG/HR PATCH TD SCH (12:50)
[2017-01-24] MEDS ORDERED: CLOPIDOGREL 75 MG TAB PO SCH (13:00)
[2017-01-24 15:23] VITALS: BP 147/73; TEMP 97; O2SAT 93
[2017-01-24] MEDS ORDERED: ENOXAPARIN SODIUM 40 MG/0.4 ML SYG SUBCU SCH (21:00)
[2017-01-24] MEDS ORDERED: REMOVE OLD PATCH TOP ONE (23:00)
[2017-01-25] MEDS ORDERED: NITROGLYCERIN 0.2 MG/HR PATCH TD SCH (09:00)
[2017-01-25] MEDS ORDERED: REMOVE OLD PATCH TOP SCH (21:00)
--- NOTE | 2017-01-26 14:53 | DS ---
SUPERVISING PHYSICIAN: Pratik Laughlin M.D. DISCHARGE DIAGNOSIS: 1. Exertional angina without any evidence of acute myocardial injury with the patient remaining stable on topical Nitro and the patient having a significant cardiac history with previous stents in the past 10 years needing close followup with Cardiology. 2. Left sided facial numbness involving cranial nerve V of unknown etiology possibly secondary to severe stenosis of the left internal carotid artery as noted on radiographic studies, including neck and head CTA showing stenosis of 75% or greater with no evidence of central involvement with MRI of the brain showing no acute infarctions. 3. Severe stenosis of the left internal carotid artery with 75% or greater as demonstrated on CT of the neck with the patient being symptomatic as noted in number 2 with left sided facial numbness without any evidence of central involvement. 4. Chronic obstructive pulmonary disease with worsening pulmonary fibrosis being followed in the outpatient setting. 5. Gastroesophageal reflux disease with hiatal hernia with a history of esophageal strictures. 6. History of abdominal aortic aneurysm, last noted in 2017 measuring 3.[address] Laughlin. 7. Pulmonary nodules showing to be stable on serial CT exams followed by Dr. Laughlin and hydroelectric station operator, Dr. Williamson. HISTORY OF PRESENT ILLNESS: Mr. Toney is a 71 year-old male patient of Dr. Laughlin. He has a significant history of pulmonary fibrosis and elevated cholesterol. Two weeks previously, he developed left sided facial numbness but no motor deficits. He was seen in the clinic on the day of admission in Dr. 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 He notes that the pain resolved after resting for approximately 30 minutes. He does note that he has had some nausea associated with the pain but denies any significant shortness of breath or syncopal episodes. In the clinic of date of admission, he had an EKG that showed normal sinus with no ST or T wave changes. Given the fact that he had been having some occurrence of chest pains within the last 24 to 48 hours as well as ongoing left sided facial numbness, Dr. Laughlin requested the patient be placed in Observation for further cardiovascular evaluation as well as further evaluation of the ongoing facial numbness. The patient was directly admitted in stable condition to the Medical/Surgical floor for further evaluation and ongoing treatment. LABORATORY: CBC on admission showed to be within normal limits. Chemistries showed normal electrolytes with BUN 19, creatinine 1.26. Liver functions were all within normal limits. Magnesium was 2.3, calcium 9.1. He had serial enzymes times three that all showed troponin of less than 0.02 with a normal CPK , at discharge was 85. Lipid panel did show triglycerides of 147, cholesterol 213 with LDL cholesterol direct at 145.8 with HDL cholesterol at 41. EKG showed normal sinus rhythm on admission. RADIOLOGY: He had a brain MRI that showed per radiology interpretation no hemorrhage, mass effects or acute infarction. There was note of a less well defined flow voids of the distal left internal carotid artery and left medial cerebral artery which could have been secondary to a slow flow versus altered direction of flow from occluded left internal carotid artery as noted on same day carotid studies. There was also note of chronic microangiopathy with chronic-appearing lacunar infarcts in the left anterior frontal white matter. This was followed-up with a carotid ultrasound and a CT of the neck and head. Carotid ultrasound per radiology interpretation did show mild atherosclerosis of less than 50% stenosis in both internal carotid arteries by ratio and velocity criteria. Lemus scale to suggest 77% stenosis in the left carotid bulb , but initially there was no mention of elevated velocities or ratios after discussing it with Dr. Krishna, radiologist, CT of the head and neck to further evaluate left internal carotid. Of note on that exam per Dr. Krishna was left internal carotid artery showed at least 70% or greater stenosis. There was also note of greater than 75% stenosis of the left subclavian artery just proximal to the origin of the vertebral artery with far moderate to severe stenosis of the origin of the left subclavian. There was note of poor opacification of the left vertebral artery which could relate to the subclavian artery stenosis. There was note of mild atherosclerosis disease of the intracranial internal carotid arteries and moderate to severe focal stenosis of proximal basilar artery. Also of note was prominent bilateral posterior communicating arteries were seen with hypoplastic P1 segments of the posterior cerebral arteries. Please refer to that full report for in depth detail. HOSPITAL COURSE: Mr. Toney was admitted and placed in observation as noted to further evaluate both the facial numbness exertional angina. Upon admission, he was without any pain. He was started on topical Nitro patch at 0.2 mcg per hour. He has serial enzymes completed that all showed to be negative as well as EKGs showed no acute changes. It was felt that after further studies that he was clinically stable enough to be discharged. PLAN: Mr. Toney was discharged on 01/24/17 with instructions to followup with Dr. Caro as scheduled in [place] on 01/25/17 at 1400. He was to resume his home medications as directed and start new prescriptions as instructed. He was instructed he was not to work or do any strenuous activities until he was seen in followup by pharmacy coordinator, Dr. Caro. He was told to return to the hospital or call Dr. Caro or Dr. Laughlin if any chest pains recurred and to take his Nitro that was prescribed as directed and call 911 or go to the nearest Emergency Room. At discharge, new prescriptions included: 1. Nitrostat 1 sublingual every 5 minutes times 3 as needed for chest pains to call 911 2. Plavix 75 mg daily, #30. 3. Nitroglycerin patch 0.4 mg daily to take off at night. No other new prescriptions were provided. He already was on aspirin. I believe he was already on cholesterol medicine, however this was not mentioned in his home medications. Study results from Radiology as well as imaging studies were sent with him to be provided Dr. Caro on followup. Diet at discharge was low fat, low calorie diet. Activity was as directed. No activity or strenuous exercise until seen in followup. Discharge condition was stable and improved. #[id number] MTDD
== END 2017-01-24 16:50 | disposition home or self-care (01) ==
LOC: INTOOBSV 11:24 → MS 11:24
PROVIDERS: ADMIT Nurse Practitioner Family; ATTEND Nurse Practitioner Family
DX: I25.118 Atherosclerotic heart disease of native coronary artery with other forms of angina pectoris (principal); R20.0 Anesthesia of skin; I65.22 Occlusion and stenosis of left carotid artery; J44.9 Chronic obstructive pulmonary disease, unspecified; J84.10 Pulmonary fibrosis, unspecified; K21.9 Gastro-esophageal reflux disease without esophagitis; K44.9 Diaphragmatic hernia without obstruction or gangrene; I71.4 Abdominal aortic aneurysm, without rupture; R91.8 Other nonspecific abnormal finding of lung field; M47.812 Spondylosis without myelopathy or radiculopathy, cervical region; E78.5 Hyperlipidemia, unspecified; I73.89 Other specified peripheral vascular diseases; Z66 Do not resuscitate; Z95.5 Presence of coronary angioplasty implant and graft; Z79.82 Long term (current) use of aspirin; Z79.899 Other long term (current) drug therapy; Z87.891 Personal history of nicotine dependence; Z82.49 Family history of ischemic heart disease and other diseases of the circulatory system; Z83.3 Family history of diabetes mellitus; Z80.9 Family history of malignant neoplasm, unspecified
CPT/HCPCS: 36415 ×6; 70496; 70498; 70551; 80053; 80061; 82550 ×3; 82553 ×3; 83735; 84484 ×3; 85025; 93005; 93880; 94760 ×2; 96372; G0378; J1650

== ENCOUNTER → 2017-09-03 | Outpatient (CLI) | payer MEDICARE | LOC: GMAJ 16:47 | PROVIDERS: ATTEND Family Medicine | DX: K62.5 Hemorrhage of anus and rectum (principal); R07.2 Precordial pain ==

== ENCOUNTER 2018-02-06 14:55 | Inpatient (IN) | payer MEDICARE ==
[2018-02-06] MEDS ORDERED: ALBUTEROL SULFATE 2.5 MG/3 ML VIAL NEB PRN (15:11)
--- NOTE | 2018-02-06 15:11 | HP ---
SUPERVISING PHYSICIAN: Pratik Laughlin M.D. CHIEF COMPLAINT: Shortness of breath, coughing and respiratory symptoms. HISTORY OF PRESENT ILLNESS: This is a 72 year-old male patient who complained of some upper respiratory symptoms that started about 3 weeks ago. He just progressively worsened over the last 3 weeks. Actually on Saturday he almost came to the Emergency Room but then he saw Dr. Laughlin, his primary care physician , on Saturday. At that time his granddaughter was sent to the hospital for an acute appendicitis and he asked that he not be admitted and was treated as an outpatient by Dr. Laughlin. He was given some Levaquin and he returned today for a 24 hour followup. Yesterday his WBCs in clinic were 12.6, today they were 12.1. H&H was stable at 15 and 43.4. Chest x-ray today revealed bibasilar infiltrate consistent with pneumonia but much more prominent on the right. Dr. Laughlin called me for direct admission to the hospital for community acquire pneumonia most likely pneumococcal pneumonia failed outpatient treatment. PAST MEDICAL HISTORY: 1. Chronic obstructive pulmonary disease. 2. Gastroesophageal reflux disease. 3. Hyperlipidemia. 4. Coronary artery disease. 5. Abdominal aortic aneurysm that was 3.1 cm in 2017. 6. History of pulmonary nodules, stable by serial CTs. 7. Diverticulosis. 8. Esophageal strictures. 9. Peripheral sensory neuropathy. PAST SURGICAL HISTORY: 1. PTCA times 2. 2. Hernia repair. OUTPATIENT MEDICATIONS: Per the EMR and awaiting verification. ALLERGIES: BRILINTA. 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 He is . He has 3 children. He quit smoking approximately 22 years ago. He quit drinking alcoholic beverages at the same time. There is no history of illicit drug use. REVIEW OF SYSTEMS: Positive for fatigue and fever. Negative for weight changes. HEENT: Negative for sinus symptoms, ear pain, vision changes or sore throat. RESPIRATORY: Positive for coughing, wheezing, shortness of breath as well as right sided pleuritic chest pain. CARDIOVASCULAR: Negative for chest pain, palpitations or tachycardia. GASTROINTESTINAL: Negative for nausea, vomiting, diarrhea or constipation. GENITOURINARY: Negative for hematuria, dysuria and polyuria. NEUROLOGIC: Negative for dizziness, headaches or seizures. PHYSICAL EXAMINATION: VITAL SIGNS: Temperature 95.7, heart rate 95, respiratory rate 26, O2 sat was 75% on room air on admission. After resting momentarily on the side of the bed , it came up to the mid 80s and after putting O2 at 2 liters it came up to 91 to 92%. GENERAL: This is a 72 year-old male patient who is lying in his hospital bed. He is in no acute distress. HEENT: Normocephalic and atraumatic. Pupils are equal and reactive. Oropharynx is clear. NECK: Supple without mass. RESPIRATORY: Diminished breath sounds throughout with some scattered expiratory wheezing. He is slightly tachypneic at times. CHEST: There is equal rise and fall of the chest with inspiration and expiration. CARDIOVASCULAR: Regular rate and rhythm. GASTROINTESTINAL: Abdomen is soft, nondistended, non-tender. Bowel sounds are positive. EXTREMITIES: No cyanosis, clubbing or edema. NEUROLOGIC: He is awake, alert and oriented times three. LABORATORY: Labs and films are as per the History of Present Illness. We are awaiting a CMP at this time. ASSESSMENT: 1. Sepsis related to bilateral community acquired pneumonia more prominent in the right than left most likely pneumococcal pneumonia with respiratory rate of 26, WBCs of 12,100, O2 sats of 75% and heart rate of 95. 2. Bilateral community-acquired pneumonia failed outpatient therapy with hypoxia. 3. Chronic obstructive pulmonary disease with acute exacerbation. 4. Gastroesophageal reflux disease. 5. Abdominal aortic aneurysm. 6. Hyperlipidemia. 7. History of pulmonary nodules with stable past CTs. PLAN: We will admit the patient to the hospital. I have started the pneumonia guidelines and he will be on Lovenox and Rocephin. I have gotten cultures, both blood cultures and sputum cultures. He will have Lovenox for DVT prophylaxis as well as Protonix for ulcer prophylaxis. He will get good pulmonary hygiene. I will also give him a sleeping pill tonight and we will monitor the patient closely and follow as needed. #[id number] [facility]
[2018-02-06] MEDS ORDERED: PANTOPRAZOLE SODIUM IV 40 MG VIAL IV SCH (15:30)
[2018-02-06] MEDS ORDERED: SODIUM CHL 0.9% 50ML MIN-BAG+ 50 ML IVPB ONE (15:30)
[2018-02-06] MEDS ORDERED: cefTRIAXone SODIUM 1 GM VIAL ONE (15:31)
[2018-02-06] MEDS: IV SET AND CAP CHANGE INJ INJ SCH (15:50)
[2018-02-06] MEDS: cefTRIAXone SODIUM 1 GM in SODIUM CHL 0.9% 50ML MIN-BAG+ 50 ML IVPB SCH (15:50)
[2018-02-06] MEDS: SODIUM CHLORIDE 0.9% (FLUSH) 10 ML SYG IV PRN ×2 (15:50→16:48)
[2018-02-06] MEDS: IPRATROPIUM/ALBUTEROL 3 ML VIAL INH SCH ×2 (17:02→20:00)
[2018-02-06] MEDS: levoFLOXacin 750MG IV 750 MG in PREMIX BAG 1 BAG IVPB SCH (17:44)
[2018-02-06] MEDS ORDERED: methylPREDNISolone SODIUM SUC 125 MG/2 ML VIAL IV ONE (18:35)
[2018-02-06] MEDS: SODIUM CHLORIDE 0.9% (FLUSH) 10 ML SYG IV SCH (21:04)
[2018-02-06] MEDS: ENOXAPARIN SODIUM 40 MG/0.4 ML SYG SUBCU SCH (21:04)
[2018-02-06] MEDS: methylPREDNISolone SODIUM SUC 125 MG/2 ML VIAL IV SCH (21:05)
[2018-02-06] MEDS: TEMAZEPAM 15 MG CAP PO PRN (21:09)
[2018-02-07] MEDS: methylPREDNISolone SODIUM SUC 125 MG/2 ML VIAL IV SCH ×3 (05:30→21:41)
[2018-02-07] MEDS: IPRATROPIUM/ALBUTEROL 3 ML VIAL INH SCH ×4 (07:55→20:15)
--- NOTE | 2018-02-07 08:52 | RAD ---
Procedure: XR CHEST 2 VIEWS Exam Date: 02/07/2018 Ordering Provider: GILLES ROMERO Clinical Indication: Pneumonia Comparison: 02/06/2018 Findings: Cardiomediastinal silhouette is stable. Emphysematous changes bilaterally. Bibasilar fibrotic changes. No definite acute infiltrate. No pleural effusions. No pneumothorax. No acute osseous abnormalities. Impression: 1. Stable appearance of the chest. Electronically signed by: Herrera Evans MD 02/07/2018 8:51 AM CDT
[2018-02-07] MEDS: CLOPIDOGREL 75 MG TAB PO SCH (09:45)
[2018-02-07] MEDS: ASPIRIN (ENTERIC COATED) 81 MG TAB PO SCH (09:45)
[2018-02-07] MEDS: METOPROLOL SUCCINATE XL 25 MG TAB PO SCH (09:45)
[2018-02-07] MEDS: SODIUM CHLORIDE 0.9% (FLUSH) 10 ML SYG IV SCH ×2 (09:46→21:26)
[2018-02-07] MEDS: ATORVASTATIN 10 MG TAB PO SCH (09:47)
[2018-02-07] MEDS: guaiFENesin ER TAB 600 MG TAB PO SCH ×2 (11:22→21:26)
--- NOTE | 2018-02-07 13:17 | PN ---
SUPERVISING PHYSICIAN: Pratik Laughlin MD DATE: 02/07/18 SUBJECTIVE: The patient is sitting up in bed. He feels much improved since yesterday. We discussed at length using his incentive spirometry and to walk in the hallways. He has no complaints of nausea, vomiting, diarrhea or chest pain, but he does continue to have some shortness of breath with exertion, but is much better than yesterday. OBJECTIVE: VITAL SIGNS: T-max 24 hours is 99.5. Pulse rate 84. Respiratory rate 16. O2 saturation 94% on 3 liters nasal cannula. RESPIRATORY: Diminished throughout, especially at the bases. There is no expiratory wheezing, but he has a few scattered rhonchi. CARDIAC: Regular rate and rhythm. GASTROINTESTINAL: Abdomen is soft, nondistended, nontender. Bowel sounds are positive. NEUROLOGIC: Awake, alert and oriented times three. LABORATORY: WBC improved to 6.6, but he continues to have a left shift on his differential with neutrophils 98.7%. Electrolytes are basically within normal limits. Preliminary blood cultures are negative to date. Chest x-ray is stable in appearance of the chest. All other labs and films have been reviewed via the EMR. ASSESSMENT: 1. Sepsis related to bilateral community acquired pneumonia more prominent in the right than left most likely pneumococcal pneumonia with respiratory rate of 26, WBCs of 12,100, O2 sats of 75% and heart rate of 95. 2. Bilateral community-acquired pneumonia failed outpatient therapy with hypoxia. 3. Chronic obstructive pulmonary disease with acute exacerbation. 4. Gastroesophageal reflux disease. 5. Abdominal aortic aneurysm. 6. Hyperlipidemia. 7. History of pulmonary nodules with stable past CTs. PLAN: We will continue present supportive care. I will get him to ambulate in the hallways and see if we can titrate off his oxygen. Repeat his lab for in the morning. I will do chest x-ray and watch for his clinical response as he is improving daily. I have tapered his steroids down and we should be able to start his oral steroids tomorrow or the next day. I am adding Mucinex as an expectorant. We discussed at length aggressive pulmonary hygiene and encouraged his incentive spirometry. We will continue to monitor the patient closely and follow as needed. #[id number] [facility]
[2018-02-07] MEDS ORDERED: SODIUM CHL 0.9% 50ML MIN-BAG+ 50 ML IVPB ONE (15:52)
[2018-02-07] MEDS ORDERED: cefTRIAXone SODIUM 1 GM VIAL ONE (15:52)
[2018-02-07] MEDS: cefTRIAXone SODIUM 1 GM in SODIUM CHL 0.9% 50ML MIN-BAG+ 50 ML IVPB SCH (16:06)
[2018-02-07] MEDS: PANTOPRAZOLE SODIUM TAB 40 MG PO SCH (16:09)
[2018-02-07] MEDS: levoFLOXacin 750MG IV 750 MG in PREMIX BAG 1 BAG IVPB SCH (18:32)
[2018-02-07] MEDS: ENOXAPARIN SODIUM 40 MG/0.4 ML SYG SUBCU SCH (21:25)
[2018-02-07] MEDS: TEMAZEPAM 15 MG CAP PO PRN (21:26)
[2018-02-08] MEDS: SODIUM CHLORIDE 0.9% (FLUSH) 10 ML SYG IV PRN (06:08)
[2018-02-08] MEDS: methylPREDNISolone SODIUM SUC 125 MG/2 ML VIAL IV SCH (06:08)
[2018-02-08] MEDS: PANTOPRAZOLE SODIUM TAB 40 MG PO SCH (06:35)
[2018-02-08] MEDS: IPRATROPIUM/ALBUTEROL 3 ML VIAL INH SCH ×4 (08:24→20:45)
[2018-02-08] MEDS: guaiFENesin ER TAB 600 MG TAB PO SCH ×2 (09:25→20:25)
[2018-02-08] MEDS: ATORVASTATIN 10 MG TAB PO SCH (09:25)
[2018-02-08] MEDS: CLOPIDOGREL 75 MG TAB PO SCH (09:25)
[2018-02-08] MEDS: METOPROLOL SUCCINATE XL 25 MG TAB PO SCH (09:25)
[2018-02-08] MEDS: ASPIRIN (ENTERIC COATED) 81 MG TAB PO SCH (09:25)
[2018-02-08] MEDS: SODIUM CHLORIDE 0.9% (FLUSH) 10 ML SYG IV SCH ×2 (09:26→20:22)
--- NOTE | 2018-02-08 11:27 | PN ---
DATE: 02/08/18 SUPERVISING PHYSICIAN: Pratik Laughlin M.D. SUBJECTIVE: The patient is sitting up in his bed. He feels much improved. He continues to have sats that are at 90% on 3 liters and he does get some shortness of breath but he denies chest pain, wheezing, nausea, vomiting, diarrhea or constipation. OBJECTIVE: VITAL SIGNS: He is afebrile and has been afebrile for 24 hours. Pulse rate 77, blood pressure 127/70, respiratory rate 18, O2 sat is 90% on 3 liters nasal cannula. RESPIRATORY: Diminished breath sounds throughout with a few scattered rhonchi. No wheezing noted. CARDIAC: Regular rate and rhythm. GASTROINTESTINAL: Abdomen is soft, nondistended, non-tender. Bowel sounds are positive. NEUROLOGIC: He is awake, alert and oriented times three. LABORATORY: White count is elevated to 18,900 with a left shift on his differential, hemoglobin 13.5, hematocrit 41.4. Electrolytes are basically within normal limits. Preliminary blood cultures show no growth after 24 hours. All other labs and films have been reviewed via the EMR. RESPIRATORY: RT reports patient's oxygen saturations are 85% at rest on room air , sitting on side of bed. ASSESSMENT: 1. Sepsis related to bilateral community acquired pneumonia more prominent in the right than left most likely pneumococcal pneumonia with respiratory rate of 26, WBCs of 12,100, O2 sats of 75% and heart rate of 95. 2. Bilateral community-acquired pneumonia failed outpatient therapy with hypoxia. 3. Chronic obstructive pulmonary disease with acute exacerbation. 4. Gastroesophageal reflux disease. 5. Abdominal aortic aneurysm. 6. Hyperlipidemia. 7. History of pulmonary nodules with stable past CTs. PLAN: We will continue present supportive care. I have again encouraged him to ambulate in the hallways. To titrate him off his oxygen. I have ordered an ambulation study in case he needs O2 to go home. I have also ordered exertional studies b.i.d. to check his oxygen saturation with exertion. I will repeat his lab and x-ray in the morning. His IV steroids have been discontinued. I have changed him to p.o. steroids. Continue to monitor his cultures as they become available. Sputum was collected today, so we will monitor that also. Otherwise we will continue to monitor the patient closely and follow as needed. Dr. Laughlin is the collaborating physician available for consultation. [facility][id number] [facility]
[2018-02-08] MEDS: predniSONE 20 MG TAB PO SCH (11:57)
[2018-02-08] MEDS ORDERED: SODIUM CHL 0.9% 50ML MIN-BAG+ 50 ML IVPB ONE (15:28)
[2018-02-08] MEDS ORDERED: cefTRIAXone SODIUM 1 GM VIAL ONE (15:29)
[2018-02-08] MEDS: cefTRIAXone SODIUM 1 GM in SODIUM CHL 0.9% 50ML MIN-BAG+ 50 ML IVPB SCH (15:32)
[2018-02-08] MEDS: levoFLOXacin 750MG IV 750 MG in PREMIX BAG 1 BAG IVPB SCH (17:50)
[2018-02-08] MEDS ORDERED: methylPREDNISolone SODIUM SUC 40 MG/ML VIAL IV SCH (18:00)
[2018-02-08] MEDS ORDERED: GLUCAGON INJ 1 MG VIAL SUBCU PRN (18:24)
[2018-02-08] MEDS ORDERED: DEXTROSE 50% 25 GM/50 ML SYG IV PRN (18:24)
[2018-02-08] MEDS: ENOXAPARIN SODIUM 40 MG/0.4 ML SYG SUBCU SCH (20:25)
[2018-02-08] MEDS: INSULIN LISPRO 100 UNITS/ML PEN SUBCU SCH (21:00)
[2018-02-08] MEDS: TEMAZEPAM 15 MG CAP PO PRN (21:28)
[2018-02-09] MEDS: PANTOPRAZOLE SODIUM TAB 40 MG PO SCH (05:48)
--- NOTE | 2018-02-09 06:47 | RAD ---
EXAM: PA and LATERAL CHEST RADIOGRAPHS CLINICAL INDICATION: Pneumonia. Shortness of breath. COMPARISON: Compared to the chest radiographs of February 07, 2018. FINDINGS: Cardiac size and pulmonary vasculature are normal. Unchanged bibasilar pulmonary consolidations suspicious for pneumonia. Emphysematous damage in both mid and upper lung zones is unchanged. No pleural effusions, pneumothorax or free peritoneal gas. No suspicious hilar or mediastinal lymphadenopathy. Bones are intact on these two views. IMPRESSION: Unchanged chest radiographs. No pneumothorax. Electronically signed by: Geremias Maldonado MD 02/09/2018 6:45 AM CDT
[2018-02-09] MEDS: IPRATROPIUM/ALBUTEROL 3 ML VIAL INH SCH ×4 (07:15→20:25)
[2018-02-09] MEDS: INSULIN LISPRO 100 UNITS/ML PEN SUBCU SCH ×4 (07:22→21:30)
[2018-02-09] MEDS: SODIUM CHLORIDE 0.9% (FLUSH) 10 ML SYG IV SCH ×2 (09:36→21:27)
[2018-02-09] MEDS: predniSONE 20 MG TAB PO SCH (09:36)
[2018-02-09] MEDS: ASPIRIN (ENTERIC COATED) 81 MG TAB PO SCH (09:37)
[2018-02-09] MEDS: METOPROLOL SUCCINATE XL 25 MG TAB PO SCH (09:37)
[2018-02-09] MEDS: CLOPIDOGREL 75 MG TAB PO SCH (09:37)
[2018-02-09] MEDS: ATORVASTATIN 10 MG TAB PO SCH (09:37)
[2018-02-09] MEDS: guaiFENesin ER TAB 600 MG TAB PO SCH ×2 (09:37→21:27)
--- NOTE | 2018-02-09 14:00 | PN ---
DATE: 02/09/18 SUPERVISING PHYSICIAN: Pratik Laughlin M.D. SUBJECTIVE: The patient is sitting up in his bed. His is at the bedside. We discussed having home oxygen. He says he feels better but his oxygen saturations have dropped into the mid 80s after only walking 5 feet and he will most likely have to be on home oxygen. At rest he has no complaints of shortness of breath but he does admit to getting shortness of breath with any kind of exertion. No nausea or vomiting or chest pain.. OBJECTIVE: VITAL SIGNS: He is afebrile. Heart rate 76, blood pressure 126/72, respiratory rate 20, 02 saturation 93% on 3 liters nasal cannula. After ambulating 5 feet on room air, he dropped to 86%. RESPIRATORY: Diminished breath sounds throughout. There is no expiratory wheezing, just a few scattered rhonchi. CARDIAC: Regular rate and rhythm. GASTROINTESTINAL: Abdomen is soft, nondistended, non-tender. Bowel sounds are positive. NEUROLOGIC: He is awake, alert and oriented times three. LABORATORY: WBC has increased to 19,600, he continues to have a left shift on his differential. Hemoglobin and hematocrit are stable at 14.2 and 43.8. Electrolytes are basically within normal limits. Blood sugars have run a little bit elevated, most likely due to the steroids. They have nettie as high as 219. His preliminary blood cultures show no growth after 48 hours. Still awaiting the sputum culture results. Chest x-ray shows unchanged bibasilar pulmonary consolidation suspicious for pneumonia with emphysematous damage in both mid and upper addison zones as unchanged. All other labs and films have bee reviewed via the EMR. ASSESSMENT: 1. Sepsis related to bilateral community acquired pneumonia more prominent in the right than left most likely pneumococcal pneumonia with respiratory rate of 26, WBCs of 12,100, O2 sats of 75% and heart rate of 95. 2. Bilateral community-acquired pneumonia failed outpatient therapy with hypoxia. 3. Chronic obstructive pulmonary disease with acute exacerbation. 4. Gastroesophageal reflux disease. 5. Abdominal aortic aneurysm. 6. Hyperlipidemia. 7. History of pulmonary nodules with stable past CTs. 8. History of pulmonary fibrosis. PLAN: We will continue present supportive care. We will get his home oxygen ordered. I have added Accu-Cheks last night due to his elevated blood sugars and with a sliding scale insulin. I will repeat his labs in the morning. He is on p.o. steroids at this time and has been for 24 hours. I will continue to monitor his cultures. I have encouraged good pulmonary hygiene as well as frequent ambulation with oxygen. He will need close followup with Dr. Laughlin on discharge as well as seeing a clinical science consultant. I will continue to monitor the patient closely and follow as needed. Dr. Laughlin is the collaborating physician available for consultation. #[id number] [facility]
[2018-02-09] MEDS ORDERED: cefTRIAXone SODIUM 1 GM VIAL ONE (15:04)
[2018-02-09] MEDS ORDERED: SODIUM CHL 0.9% 50ML MIN-BAG+ 50 ML IVPB ONE (15:04)
[2018-02-09] MEDS: cefTRIAXone SODIUM 1 GM in SODIUM CHL 0.9% 50ML MIN-BAG+ 50 ML IVPB SCH (15:12)
[2018-02-09] MEDS: IV SET AND CAP CHANGE INJ INJ SCH (16:19)
[2018-02-09] MEDS: levoFLOXacin 750MG IV 750 MG in PREMIX BAG 1 BAG IVPB SCH (17:32)
[2018-02-09] MEDS ORDERED: cloNIDine HCL 0.1 MG TAB PO ONE (17:39)
[2018-02-09] MEDS: ENOXAPARIN SODIUM 40 MG/0.4 ML SYG SUBCU SCH (21:26)
[2018-02-09] MEDS: TEMAZEPAM 15 MG CAP PO PRN (21:27)
[2018-02-10] MEDS: PANTOPRAZOLE SODIUM TAB 40 MG PO SCH (06:15)
[2018-02-10] MEDS: INSULIN LISPRO 100 UNITS/ML PEN SUBCU SCH ×4 (07:36→21:06)
[2018-02-10] MEDS: METOPROLOL SUCCINATE XL 25 MG TAB PO SCH (08:29)
[2018-02-10] MEDS: ATORVASTATIN 10 MG TAB PO SCH (08:29)
[2018-02-10] MEDS: ASPIRIN (ENTERIC COATED) 81 MG TAB PO SCH (08:29)
[2018-02-10] MEDS: predniSONE 20 MG TAB PO SCH (08:29)
[2018-02-10] MEDS: CLOPIDOGREL 75 MG TAB PO SCH (08:29)
[2018-02-10] MEDS: SODIUM CHLORIDE 0.9% (FLUSH) 10 ML SYG IV SCH ×2 (08:29→21:00)
[2018-02-10] MEDS: guaiFENesin ER TAB 600 MG TAB PO SCH ×2 (08:29→21:00)
[2018-02-10] MEDS: IPRATROPIUM/ALBUTEROL 3 ML VIAL INH SCH ×4 (08:35→20:40)
[2018-02-10] MEDS ORDERED: FLUCONAZOLE IV 100 ML IVPB ONE (09:55)
[2018-02-10] MEDS: FLUCONAZOLE IV 200 MG in PREMIX BAG 1 BAG IVPB SCH (09:57)
[2018-02-10] MEDS ORDERED: amLODIPine BESYLATE 5 MG TAB PO SCH (14:15)
[2018-02-10] MEDS ORDERED: cefTRIAXone SODIUM 1 GM VIAL ONE (15:12)
[2018-02-10] MEDS ORDERED: SODIUM CHL 0.9% 50ML MIN-BAG+ 50 ML IVPB ONE (15:12)
--- NOTE | 2018-02-10 15:13 | PN ---
SUPERVISING PHYSICIAN: Casa Carroll MD DATE: 02/10/18 SUBJECTIVE: The patient is sitting up in a chair and states he feels pretty good. His is at bedside. Basically, he states he is able to walk and does not get too short of breath. He is not necessarily wanting to go home with home oxygen. He wants to go home without home oxygen. His is at bedside and states he gets more short of breath with exertion than he is letting on. O2 saturations have dropped to about 86% on oxygen therapy. OBJECTIVE: VITAL SIGNS: Blood pressure 127/83. Heart rate 65. Respiratory rate 18. Temperature 97.8. Oxygen saturation 92% on nasal cannula. GENERAL: Mr. Toney is a 89-year-old male patient who is in no distress at this time. NEUROLOGIC: Alert and oriented. LUNGS: Very diminished, but no active wheezing. CARDIOVASCULAR: Regular rate and rhythm. Normal S1, S2. ABDOMEN: Soft. Positive bowel sounds. EXTREMITIES: Lower extremities with no significant edema. LABORATORY: Labs and films were not performed today. ASSESSMENT: 1. Sepsis related to bilateral pneumonia. 2. Hypoxia secondary to the pneumonia. 3. Chronic obstructive pulmonary disease exacerbation. 4. Gastroesophageal reflux disease. 5. Abdominal aortic aneurysm. 6. Hyperlipidemia. 7. History of pulmonary nodules with stable past CTs. 8. History of pulmonary fibrosis. PLAN: His sputum culture remains negative regarding bacterial infection. However, it has come up with some fungal growth. I did ask the lab to identify the fungus for me. In the interim, I have placed him on Diflucan 200 mg IV daily. Today, I am going to have them walk him in the gold and see what his O2 saturations are without oxygen as well as with oxygen. I am still of the mind state that he is going to need to go home on oxygen despite his wishes. His is in agreement with this. We will continue the current antibiotics and repeat x-ray as well as labs tomorrow. #[id number] [facility]
[2018-02-10] MEDS: cefTRIAXone SODIUM 1 GM in SODIUM CHL 0.9% 50ML MIN-BAG+ 50 ML IVPB SCH (15:15)
[2018-02-10] MEDS: levoFLOXacin 750MG IV 750 MG in PREMIX BAG 1 BAG IVPB SCH (17:56)
[2018-02-10] MEDS: ENOXAPARIN SODIUM 40 MG/0.4 ML SYG SUBCU SCH (21:00)
[2018-02-10] MEDS: TEMAZEPAM 15 MG CAP PO PRN (21:08)
[2018-02-11] MEDS: PANTOPRAZOLE SODIUM TAB 40 MG PO SCH (06:32)
--- NOTE | 2018-02-11 06:42 | RAD ---
EXAM DESCRIPTION: Chest,1 View CLINICAL HISTORY: COPD COMPARISON: February 09, 2018 an older exam from September 14, 2016 FINDINGS: The cardiomediastinal silhouette is unremarkable. Coarse interstitial prominence in both lung bases is unchanged from two days prior. Compared to the older exam performed on September 14, 2016, findings are stable in the left lung base and slightly worse in the right base. No new airspace consolidation or pleural effusion. Emphysematous changes are noted. There is no pneumothorax or acute fracture. IMPRESSION: Emphysema with chronic interstitial prominence in the lung bases representing fibrosis, scarring and/or subsegmental atelectasis. Findings are slightly worse from September 14, 2016. Electronically signed by: Sammy Jones MD 02/11/2018 6:41 AM CDT
[2018-02-11] MEDS: INSULIN LISPRO 100 UNITS/ML PEN SUBCU SCH ×2 (07:37→11:40)
[2018-02-11] MEDS: guaiFENesin ER TAB 600 MG TAB PO SCH (08:01)
[2018-02-11] MEDS: ASPIRIN (ENTERIC COATED) 81 MG TAB PO SCH (08:01)
[2018-02-11] MEDS: predniSONE 20 MG TAB PO SCH (08:01)
[2018-02-11] MEDS: ATORVASTATIN 10 MG TAB PO SCH (08:01)
[2018-02-11] MEDS: METOPROLOL SUCCINATE XL 25 MG TAB PO SCH (08:01)
[2018-02-11] MEDS: CLOPIDOGREL 75 MG TAB PO SCH (08:01)
[2018-02-11] MEDS: SODIUM CHLORIDE 0.9% (FLUSH) 10 ML SYG IV SCH (08:14)
[2018-02-11] MEDS: IPRATROPIUM/ALBUTEROL 3 ML VIAL INH SCH (08:44)
[2018-02-11] MEDS: FLUCONAZOLE IV 200 MG in PREMIX BAG 1 BAG IVPB SCH (10:30)
[2018-02-11 10:51] VITALS: BP 142/84; TEMP 98.2; O2SAT 90
--- NOTE | 2018-02-11 14:06 | DS ---
SUPERVISING PHYSICIAN: Casa Carroll MD ADMISSION DIAGNOSIS: 1. Sepsis related to bilateral community acquired pneumonia. 2. Chronic obstructive pulmonary disease with an acute exacerbation. 3. Gastroesophageal reflux disease. 4. Abdominal aortic aneurysm. 5. Hyperlipidemia. 6. History of pulmonary nodules with stable CT in the past. DISCHARGE DIAGNOSIS: 1. Sepsis related to bilateral community acquired pneumonia with fungal growth in the sputum. 2. Chronic obstructive pulmonary disease with an acute exacerbation. 3. Gastroesophageal reflux disease. 4. Abdominal aortic aneurysm. 5. Hyperlipidemia. 6. History of pulmonary nodules with stable CT in the past. HOSPITAL COURSE: This is a 72-year-old male patient who complained of some upper respiratory symptoms that started about 3 weeks ago. He just progressively worsened over the last 3 weeks. Actually on Saturday he almost came to the Emergency Room but then he saw Dr. Laughlin, his primary care physician , on Saturday. At that time his granddaughter was sent to the hospital for an acute appendicitis and he asked that he not be admitted and was treated as an outpatient by Dr. Laughlin. He was given some Levaquin and he returned today for a 24 hour followup. Yesterday his WBCs in clinic were 12.6, today they were 12.1. H&H was stable at 15 and 43.4. Chest x-ray today revealed bibasilar infiltrate consistent with pneumonia but much more prominent on the right. Dr. Laughlin called for direct admission to the hospital for community acquire pneumonia most likely pneumococcal pneumonia failed outpatient treatment. The patient's symptoms gradually improved. Sputum cultures came back negative as far as bacterial infections go, but did show a fungal infection. I did ask the lab to get a definite identification of the fungus, but in the interim, I have started the patient on Diflucan. Clinically, the patient is improved. He still desaturates with ambulation and is requiring oxygen therapy as an outpatient. This is likely chronic given his severe COPD and pulmonary fibrosis , and I suspect he will need oxygen indefinitely. Initially, he was opposed to this, however, in discussion with him and his at the bedside, they have agreed to utilize oxygen at home. Therefore, I am discharging the patient in stable condition on home oxygen. He is going home on Levaquin 750 mg for 7 more days as well as Diflucan 200 mg for 14 days. I have written a prescription for Combivent to be taken q.i.d. and a titrating dose of prednisone as well. I have made an appointment with Italia Huber NP for next week in the clinic. I do recommend a followup appointment with Dr. Naranjo, pulmonology, so that he can see a lung specialist. He has seen one in the past, but I think it was inconvenient for him and therefore he stopped going. However, Dr. Naranjo comes here pretty often, so he would benefit from that. He will see also Dr. Laughlin the following week for followup as well. Increase activity as tolerated. Diet is unchanged from admission. [facility][id number] [facility]
== END 2018-02-11 11:47 | disposition home or self-care (01) | DRG 871 ==
LOC: MS 14:55
PROVIDERS: ADMIT Nurse Practitioner Acute Care; ATTEND Nurse Practitioner
DX: A41.9 Sepsis, unspecified organism (principal); J18.9 Pneumonia, unspecified organism; J44.0 Chronic obstructive pulmonary disease with (acute) lower respiratory infection; J44.1 Chronic obstructive pulmonary disease with (acute) exacerbation; B49 Unspecified mycosis; R09.02 Hypoxemia; K21.9 Gastro-esophageal reflux disease without esophagitis; I71.4 Abdominal aortic aneurysm, without rupture; E78.5 Hyperlipidemia, unspecified; R91.8 Other nonspecific abnormal finding of lung field; J84.10 Pulmonary fibrosis, unspecified; I25.10 Atherosclerotic heart disease of native coronary artery without angina pectoris; G60.8 Other hereditary and idiopathic neuropathies; Z66 Do not resuscitate; Z99.81 Dependence on supplemental oxygen; Z95.5 Presence of coronary angioplasty implant and graft; Z88.8 Allergy status to other drugs, medicaments and biological substances; Z87.891 Personal history of nicotine dependence

== ENCOUNTER → 2018-02-17 | Outpatient (CLI) | payer MEDICARE ==
--- NOTE | 2018-02-17 19:42 | CT ---
EXAM DESCRIPTION: Chest w/o Contrast CLINICAL HISTORY: 72 years Male, OTHER PNEUMONIA, UNSPECIFIED ORGANISM COMPARISON: September 04, 2013. TECHNIQUE: Contiguous thin section axial images through the chest were obtained without the administration of intravenous contrast. Sagittal and coronal reconstructions were reviewed. FINDINGS: The visualized thyroid gland and supraclavicular region appear normal. No evidence of abnormally enlarged mediastinal, hilar or axillary lymphadenopathy. Trachea is midline and the central tracheobronchial tree is patent. The lungs again demonstrate severe bilateral emphysematous changes with large bullous changes involving both upper and lower lobes. Worsening of the emphysematous changes noted in comparison to prior chest CT from 2014. Small focal patchy areas of airspace opacification in the posterior segment of the right upper lobe could represent infectious/inflammatory etiology. No evidence of pleural effusion. Left apical scarring appears stable from prior exam. A 6 mm noncalcified nodule with surrounding scarring related changes are noted in the anterior segment of left upper lobe which appears stable in size from prior exam. No significant interval increase in size noted. No other suspicious nodules or abnormal mass lesions identified. The heart is normal in size with no pericardial effusion. The visualized aorta is nonaneurysmal with moderate atherosclerosis. The superior vena cava is normal in size and caliber. Significant coronary artery atherosclerosis. Small hiatal hernia seen. Limited evaluation of the upper abdomen demonstrates no gross abnormality. The visualized bones demonstrate multilevel degenerative changes of the visualized thoracolumbar spine. IMPRESSION: 1. Severe bilateral emphysematous lungs with bullous changes involving bilateral upper and lower lobes with interval worsening in comparison to the prior chest from 2013. 2. Focal patchy areas of consolidation in the posterior segment outflow right upper lobe concerning for underlying pneumonia. Clinical correlation is recommended. 3. Stable 6 mm noncalcified nodule in the left upper lobe with no significant interval increase in size. No other suspicious nodules or abnormal masses identified. x This exam was performed according to our departmental dose-optimization program, which includes automated exposure control, adjustment of the mA and/or kV according to patient size and/or use of iterative reconstruction technique. Electronically signed by: Wally Armstrong MD 02/17/2018 7:40 PM CDT
== END ==
LOC: CT 13:30
PROVIDERS: ATTEND Nurse Practitioner Acute Care
DX: J18.8 Other pneumonia, unspecified organism (principal)

== ENCOUNTER 2018-05-13 09:19 | Emergency (ER) | payer MEDICARE ==
[2018-05-13] MEDS ORDERED: methylPREDNISolone SODIUM SUC 125 MG/2 ML VIAL IV ONE (09:27)
[2018-05-13] MEDS ORDERED: IPRATROPIUM/ALBUTEROL 3 ML VIAL NEB ONE ×3 (09:27→09:59)
[2018-05-13] MEDS ORDERED: ASPIRIN (CHEWABLE) 81 MG TAB PO ONE (09:29)
[2018-05-13] MEDS ORDERED: SODIUM CHLORIDE 0.9% 250ML 250 ML IVS ONE (09:38)
[2018-05-13] MEDS ORDERED: SODIUM CHLORIDE 0.9% 500ML 500 ML ONE (09:39)
[2018-05-13] MEDS ORDERED: FUROSEMIDE INJ 20 MG/2 ML VIAL IV ONE (10:07)
[2018-05-13] MEDS ORDERED: FUROSEMIDE INJ 20 MG/2 ML VIAL ONE (10:08)
--- NOTE | 2018-05-13 10:16 | RAD ---
Study: Single Frontal View of the Chest. Indication:dyspnea Comparison: February 11, 2018 Impression: Cardiomegaly. Progressive bilateral opacities at the lung bases concerning for pneumonia or pulmonary edema. Follow-up to resolution recommended. No pleural effusion or pneumothorax. No acute osseous abnormality. Electronically signed by: Kenny Henderson MD 05/13/2018 10:15 AM CDT
[2018-05-13] MEDS ORDERED: AZITHROMYCIN 250 MG TAB PO ONE ×2 (10:24→10:25)
[2018-05-13] MEDS ORDERED: cefTRIAXone SODIUM 1 GM in SODIUM CHL 0.9% 50ML MIN-BAG+ 50 ML IVPB ONE (10:24)
[2018-05-13] MEDS ORDERED: cefTRIAXone SODIUM 1 GM VIAL ONE (10:26)
[2018-05-13] MEDS ORDERED: SODIUM CHLORIDE 0.9% 50ML 50 ML ONE (10:26)
[2018-05-13 10:50] VITALS: O2SAT 96
[2018-05-13] MEDS ORDERED: LIDOCAINE 2 % GEL 5 ML TUBE TOP ONE (10:55)
[2018-05-13 10:57] VITALS: BP 118/53; TEMP 100.1
--- NOTE | 2018-05-13 10:58 | ED.PDOC ---
History of Present Illness - General Chief Complaint: Respiratory Problem Stated Complaint: Labored breathing, low O2 sats Time Seen by Provider: 05/13/18 09:21 Source: patient, family Exam Limitations: no limitations - History of Present Illness Initial Comments: Supriya presents with acute on chronic dyspnea. He was in [facility] until 12 days ago with dyspnea. There it was found that he had a right-sided lung mass. Because of age and safety issues, a bronchoscopy as not done and he was treated for presumed aspirgillus. He says the dyspnea has not got much better but today he was at the clinic to see Dr. Laughlin and it was notice that he was in respiratory distress. He also has had hemoptysis as well as chest pain. The pain is across his entire chest and is constant. He is s/p AMI x two with three total PTCA. He has had multiple COPD exacerbations. He uses oxygen 2 L at home. + cough. No other complaints. Timing/Duration: changing over time Severity: moderate Improving Factors: immobilization Worsening Factors: movement Associated Symptoms: other - see HPI Allergies/Adverse Reactions: Allergies Ticagrelor [From Brilinta] Adverse Reaction (Mild, Verified 02/06/18 15:22) Home Medications: Ambulatory Orders Pantoprazole Sodium 40 mg PO DAILY 03/19/14 Clopidogrel Bisulfate [Plavix] 75 mg PO DAILY #30 tablet 01/24/17 Aspirin [Aspirin EC] 81 mg PO DAILY 02/06/18 Metoprolol Succinate [Metoprolol Succinate ER] 25 mg PO DAILY 02/06/18 Ipratropium-Albuterol [Combivent Respimat] 1 aer IN QID 30 Days #1 aer 02/11/18 Itraconazole [Itraconazole] 100 mg PO BID 05/13/18 Review of Systems - Review of Systems Constitutional: States: fever EENTM: States: no symptoms reported Respiratory: States: see HPI Cardiology: States: see HPI Gastrointestinal/Abdominal: States: no symptoms reported Genitourinary: States: no symptoms reported Musculoskeletal: States: no symptoms reported Skin: States: no symptoms reported Neurological: States: no symptoms reported Endocrine: States: no symptoms reported Hematologic/Lymphatic: States: no symptoms reported Past Medical History (General) - Patient Medical History Hx Seizures: No Hx Stroke: No Hx Asthma: No Hx of COPD: Yes Hx Cardiac Disorders: Yes - Prior MS w/ stent placement Hx Congestive Heart Failure: No Hx Pacemaker: No Hx Hypertension: Yes Hx Diabetes: No Hx Gastroesophageal Reflux: Yes Hx MRSA: No - Vaccination History Hx Influenza Vaccination: Yes - 2014 - Social History Hx Tobacco Use: Yes - Quit in the 's Hx Alcohol Use: No Hx Substance Use: No Hx Physical Abuse: No Hx Emotional Abuse: No Family Medical History - Family History Father Living Status: Cause of : old age Hx Family Asthma: No Hx Family Congestive Heart Failure: No Hx Family Hypertension: No Hx Family Stroke: No Hx Cardiac Disease: Yes Hx Family Diabetes: No Hx Family Cancer: No Mother Living Status: Hx Family Asthma: No Hx Family Congestive Heart Failure: No Hx Family Hypertension: No Hx Family Stroke: No Hx Cardiac Disease: No Hx Family Diabetes: No Hx Family Cancer: No Hx Family;Other: Pt recalls Mother had TB and one lung, pt states he does not remember any other medical conditions Physical Exam - Physical Exam General Appearance: Obvious distress Eye Exam: bilateral normal Ears, Nose, Throat: normal ENT inspection Neck: non-tender, full range of motion, supple Respiratory: decreased breath sounds, accessory muscle use Cardiovascular/Chest: normal peripheral pulses, tachycardia, other - cyanotic fingertips Gastrointestinal/Abdominal: normal bowel sounds, non tender, soft Back Exam: no CVA tenderness, no vertebral tenderness Extremity: normal range of motion, non-tender Neurologic: radio electrician II-XII nml as tested, no motor/sensory deficits, alert, normal mood/affect, oriented x 3 Skin Exam: mottled Lymphatic: no adenopathy Progress - Progress Progress: 05/13/18 11:00 Patient was given duonebs x two. Started on BIPAP at 15/5. ABGs taken. Patient also given Lasix 20 mg IV x one. His sbp was 108 so he was also given a test bolus of NS 250 ml x one since the Lasix would take longer to get fluids off his lungs. CXR showed increasing bilateral patchy opacities as well as the right sided lung mass. wbc was 19.6. He was given Rocephin 1 gram IV x one and Azithromycin 500 mg po x one for presumed bacterial superinfection. His temperature was 100.7. The patient's respirations improved and his color returned to normal. He was able to a full conversation with his family and staff. He expressed the desire to be intubated if needed. Dr. Thad Laughlin came over from clinic and spoke with the family. It was mutually decided to send the patient by helicopter to [facility]. The family did not want him to go to [facility]. I spoke with a Dr. Laughlin at the E.R. at [facility] and the patient was accepted for transfer. Laboratory Tests 05/13/18 05/13/18 05/13/18 09:30 09:30 09:30 WBC 19.7 H RBC 4.97 Hgb 14.5 Hct 45.4 MCV 91.3 MCH 29.2 MCHC 32.0 L RDW 14.9 H Plt Count 304 MPV 7.1 L Absolute Neuts (auto) 16.80 H Absolute Lymphs (auto) 1.30 Absolute Monos (auto) 1.40 H Absolute Eos (auto) 0.20 Absolute Basos (auto) 0.10 Neutrophils % 84.9 H Lymphocytes % 6.7 L Monocytes % 7.2 Eosinophils % 0.8 L Basophils % 0.4 PT 10.5 INR 1.05 pCO2 pO2 HCO3 ABG pH ABG O2 Saturation ABG Base Excess ABG Deoxyhemoglobin Oxyhemoglobin % Carboxyhemoglobin % Methemoglobin % Sat Calc Total Hemoglobin Sodium 141 Potassium 4.2 Chloride 107 Carbon Dioxide 22 Anion Gap 16.2 BUN 11 Creatinine 1.18 BUN/Creatinine Ratio 9.3 L Random Glucose 136 H Serum Osmolality 282.7 Calcium 8.9 Total Bilirubin 1.0 AST 19 ALT 17 Alkaline Phosphatase 96 Creatine Kinase CK-MB (CK-2) CK-MB (CK-2) % Troponin I B-Natriuretic Peptide Serum Total Protein 7.4 Albumin 3.5 Globulin 3.9 H Albumin/Globulin Ratio 0.9 L 05/13/18 05/13/18 05/13/18 09:30 09:30 09:30 WBC RBC Hgb Hct MCV MCH MCHC RDW Plt Count MPV Absolute Neuts (auto) Absolute Lymphs (auto) Absolute Monos (auto) Absolute Eos (auto) Absolute Basos (auto) Neutrophils % Lymphocytes % Monocytes % Eosinophils % Basophils % PT INR pCO2 24 L pO2 110 H HCO3 14.4 ABG pH 7.400 ABG O2 Saturation 96.8 ABG Base Excess -8.4 ABG Deoxyhemoglobin 3.1 Oxyhemoglobin % 95.2 Carboxyhemoglobin % 2.0 H Methemoglobin % Sat -0.3 L Calc Total Hemoglobin 13.4 L Sodium Potassium Chloride Carbon Dioxide Anion Gap BUN Creatinine BUN/Creatinine Ratio Random Glucose Serum Osmolality Calcium Total Bilirubin AST ALT Alkaline Phosphatase Creatine Kinase 42 CK-MB (CK-2) 3.9 CK-MB (CK-2) % Not Reportable Troponin I 0.03 B-Natriuretic Peptide 279.0 H* Serum Total Protein Albumin Globulin Albumin/Globulin Ratio Departure - Departure Clinical Impression: Dyspnea, Pneumonia, Lung mass, Respiratory distress Disposition: Transfer to Hospital Condition: Serious Departure Forms: ED Discharge - Pt. Copy, Patient Portal Self Enrollment Diet: other - npo Activity: other - PER HOSPITALIST Referrals: Pratik Laughlin MD [Primary Care Provider] - 1-2 Weeks Home Medications: Ambulatory Orders Pantoprazole Sodium 40 mg PO DAILY 03/19/14 Clopidogrel Bisulfate [Plavix] 75 mg PO DAILY #30 tablet 01/24/17 Aspirin [Aspirin EC] 81 mg PO DAILY 02/06/18 Metoprolol Succinate [Metoprolol Succinate ER] 25 mg PO DAILY 02/06/18 Ipratropium-Albuterol [Combivent Respimat] 1 aer IN QID 30 Days #1 aer 02/11/18 Itraconazole [Itraconazole] 100 mg PO BID 05/13/18
== END 2018-05-13 11:20 | disposition short-term general hospital (02) ==
LOC: ER 09:19
DX: R06.03 Acute respiratory distress (principal); J18.9 Pneumonia, unspecified organism; R91.8 Other nonspecific abnormal finding of lung field; J44.9 Chronic obstructive pulmonary disease, unspecified; I25.2 Old myocardial infarction; K21.9 Gastro-esophageal reflux disease without esophagitis; I10 Essential (primary) hypertension; Z87.891 Personal history of nicotine dependence; Z95.5 Presence of coronary angioplasty implant and graft; Z79.899 Other long term (current) drug therapy; Z79.82 Long term (current) use of aspirin; Z88.8 Allergy status to other drugs, medicaments and biological substances
CPT/HCPCS: 36415; 36600; 71045; 80053; 82550; 82553; 82803; 82805; 83880; 84484; 85025; 85610; 93005; 94640; 94660; A4216; J0696; J1940; J2930; J7040; J7620; Q0144

== ENCOUNTER 2018-08-11 16:51 | Inpatient (IN) | payer MEDICARE, OTHER ==
[2018-08-11] MEDS ORDERED: MORPHINE SULFATE INJ 10 MG/ML VIAL ONE (17:05)
[2018-08-11] MEDS ORDERED: MORPHINE SULFATE INJ 10 MG/ML VIAL IV PRN ×2 (17:08→17:19)
[2018-08-11] MEDS ORDERED: SODIUM CHLORIDE 0.9% 1000ML 1,000 ML IVS PRN (17:19)
[2018-08-11] MEDS ORDERED: SODIUM CHLORIDE 0.9% (FLUSH) 10 ML SYG IV PRN (17:22)
[2018-08-11] MEDS ORDERED: ONDANSETRON INJ 4 MG/2 ML VIAL IV PRN (17:23)
[2018-08-11] MEDS: NITROGLYCERIN 2% 1 GM UD TOP SCH (17:36)
[2018-08-12] MEDS: NITROGLYCERIN 2% 1 GM UD TOP SCH ×2 (00:39→06:12)
[2018-08-12] MEDS ORDERED: CALCIUM CARBONATE (ANTACID) 500 MG CHEWABLE TAB PO PRN (04:15)
[2018-08-12] MEDS ORDERED: PANTOPRAZOLE SODIUM TAB 40 MG PO SCH (06:30)
[2018-08-12] MEDS ORDERED: MORPHINE SULFATE INJ 10 MG/ML VIAL IV PRN (09:00)
[2018-08-12 13:53] VITALS: BP 107/72; TEMP 98; O2SAT 92
--- NOTE | 2018-08-12 14:24 | SSS ---
SUPERVISING PHYSICIAN: Pratik Laughlin M.D. CHIEF COMPLAINT: Chest pain. HISTORY OF PRESENT ILLNESS: This is a 73 year-old male patient who came to the hospital as a direct admission from his house. This is a hospice patient who is under hospice for end stage lung cancer. He also has significant chronic lung disease as well, but today he developed some left sided chest pain which was unable to be relieved with p.o. morphine as well as IM morphine. Dr. Laughlin is the patient's physician who was contacted and it was suggested that he come in for more aggressive pain control. There was no workup for myocardial infarction as the patient has end stage COPD and lung cancer on hospice care and therefore this is a palliative measure at this time. Currently he is on oxygen mask and he is alert, still complaining of a pain of about 7 out of 10 to the left chest. O2 saturations are in the high 80s on oxygen mask. PAST MEDICAL HISTORY: 1. Advanced chronic obstructive pulmonary disease. 2. Lung cancer. 3. Gastroesophageal reflux disease. 4. Hyperlipidemia. 5. Coronary artery disease. 6. Abdominal aortic aneurysm. 7. History of pulmonary nodules. 8. Diverticulosis. 9. Esophageal strictures. 10. Peripheral sensory neuropathy. PAST SURGICAL HISTORY: 1. Percutaneous transluminal coronary angioplasty with stents times 2. 2. Hernia repair. CURRENT MEDICATIONS: Please see Med. Rec. list once it is filled out. ALLERGIES: BRILINTA. FAMILY HISTORY: Reviewed and noncontributory. SOCIAL HISTORY: The patient is now under hospice care for end stage COPD and lung cancer. He quit smoking about 23 years ago. He is and has 3 children. REVIEW OF SYSTEMS: CONSTITUTIONAL: No fever or chills. No recent weight loss or weight gain. HEENT: No headaches, vision changes, ear pain, nasal congestion or throat pain. RESPIRATORY: Positive for shortness of breath. Positive for cough. No hemoptysis. No pleuritic chest pain. CARDIOVASCULAR: Positive for chest pain. No palpitations. No peripheral edema. GASTROINTESTINAL: No nausea, vomiting, diarrhea, constipation or abdominal pain. GENITOURINARY: No dysuria, frequency or flank pain. NEUROLOGIC: Positive for confusion. No dizziness, headaches or seizures or paresthesias. HEMATOLOGIC: Positive for easy bruising but no transfusion reaction. ENDOCRINE: No polydipsia, polyuria or polyphagia. No heat or cold intolerance. PHYSICAL EXAMINATION: VITAL SIGNS: Blood pressure 94/90, heart rate 84, respiratory rate 18, temperature 99.1, oxygen saturation 91% on 55% oxygen concentration via Venti mask. GENERAL: Mr. Toney is a 73 year-old elderly male patient who is in moderate respiratory distress at this time. CHEST: Lungs are diminished. No active wheezing. CARDIOVASCULAR: The patient has a regular rate and rhythm. Normal S1 and S2. ABDOMEN: Soft, positive bowel sounds. GENITOURINARY: Exam is deferred. EXTREMITIES: Lower extremities with no edema, 2+ pulses. Capillary refill is less than 2 seconds. NEUROLOGIC: The patient is alert, a little bit confused. ASSESSMENT: 1. Chest pain. 2. End stage chronic obstructive pulmonary disease. 3. Lung cancer. 4. History of coronary artery disease. PLAN: At this time the patient will be admitted to inpatient hospice. They are writing the orders for admission and we are providing pain control for the patient. He continues to wish for no aggressive measures and is still under hospice care at this time. He is also being written for anxiety medications as needed as well. Further orders to be written by the hospice team. His pain resolved while here at the hospital. He was able to sit up in a chair, and remained chest pain free. Therefore, he is being taken back home under in- home Hospice. [id number] [facility]
== END 2018-08-12 15:05 | disposition hospice, home (50) | DRG 313 ==
LOC: MS 16:51
PROVIDERS: ADMIT Family Medicine; ATTEND Nurse Practitioner
DX: R07.9 Chest pain, unspecified (principal); C34.90 Malignant neoplasm of unspecified part of unspecified bronchus or lung; J44.9 Chronic obstructive pulmonary disease, unspecified; K21.9 Gastro-esophageal reflux disease without esophagitis; I25.10 Atherosclerotic heart disease of native coronary artery without angina pectoris; E78.5 Hyperlipidemia, unspecified; G60.8 Other hereditary and idiopathic neuropathies; Z51.5 Encounter for palliative care; Z88.8 Allergy status to other drugs, medicaments and biological substances; Z87.891 Personal history of nicotine dependence; Z66 Do not resuscitate